=== PATIENT | male | born 2000 | race Caucasian/White ===

== ENCOUNTER 2024-07-22 21:06 | Emergency (ER) | payer MEDICAID, SELFPAY ==
--- NOTE | 2024-07-22 21:23 | ED.PSYCH ---
HPI - Psych General Chief Complaint: Psychiatric Symptoms <MIGUEL Beckwith Last Filed: 07/23/24 02:26> Stated Complaint: suicidal, substance use <MIGUEL Beckwith Last Filed: 07/23/24 02:26> Time Seen by Provider: 07/22/24 21:12 <MIGUEL Beckwith Last Filed: 07/23/24 02:26> Source: patient and old records reviewed <MIGUEL Beckwith Last Filed: 07/23/24 02:26> Mode of arrival: EMS <MIGUEL Beckwith Last Filed: 07/23/24 02:26> Limitations: no limitations <MIGUEL Beckwith Last Filed: 07/23/24 02:26> History of Present Illness HPI Narrative: Patient is a 23 y/o male who presents to the ED via EMS with report of hallucinations. Per EMS report, they were called out to a local [facility] for a patient with suicidal ideation, admitting to drug use. Patient is currently homeless. Reportedly transitioning to female, currently taking spironolactone. Prefers to go by She/Her. Patient states he has history of bipolar and suicidal behaviors, has been off of his medications for the last 1 month. Does not currently follow with a psychiatrist. States he has been hearing and seeing voices of his brothers to have . States this has been an ongoing issue for the last few years. He currently denies SI. Denies HI. He does admit to smoking methamphetamines which was laced with fentanyl as well as snorting fentanyl. <MIGUEL Beckwith Last Filed: 07/23/24 02:26> Review of Systems Review of Systems: All systems reviewed & are unremarkable except as noted in HPI. <MIGUEL Beckwith Last Filed: 07/23/24 02:26> All systems reviewed & are unremarkable except as noted in HPI and below <MIGUEL Beckwith Last Filed: 07/23/24 02:26> [facility] Social History Social History: Social History Substance use type: amphetamines, opiates and methamphetamine <Chiqui Dailey PA-C - Last Filed: 07/23/24 02:26> Exam Narrative: GENERAL: Disheveled-appearing, thin, non-toxic, in no acute distress. HEAD: Normocephalic, atraumatic. RESPIRATORY: Airway patent, respirations nonlabored. Clear to auscultation bilaterally, no rales, rhonchi, wheezing. CARDIOVASCULAR: Regular rate and rhythm MUSCULOSKELETAL: Moves all extremities. No gross deformities. SKIN: Warm, dry, normal color. NEURO: Alert. Speech clear. Cranial nerves II-XII grossly intact. Steady gait. No ataxic movements. PSYCHIATRIC: Agitated, not cooperative at times. <Chiqui Dailey PA-C - Last Filed: 07/23/24 02:26> Course VAMP CREASER/PA Physician Supervision For this patient encounter, I reviewed the VAMP CREASER or PA documentation, treatment plan, and medical decision making and had [id number] time with this patient. I performed all aspects of the MDM as documented. <Zoraida Damon MD - Last Filed: 07/23/24 06:00> Vital Signs Vital signs: Vital Signs Temperature 97.9 F 07/22/24 21:38 Pulse Rate 88 07/22/24 21:38 Respiratory Rate 18 07/22/24 21:38 Blood Pressure 130/92 H 07/22/24 21:38 Pulse Oximetry 99 07/22/24 21:38 Oxygen Delivery Room Air 07/22/24 21:38 Temperature 97.9 F 07/22/24 21:38 Pulse Rate 77 07/23/24 05:39 Respiratory Rate 18 07/23/24 05:39 Blood Pressure 122/87 07/23/24 05:39 Pulse Oximetry 97 07/23/24 05:39 Oxygen Delivery Room Air 07/22/24 21:38 <Chiqui Dailey PA-C - Last Filed: 07/23/24 02:26> Vital Signs Temperature 97.9 F 07/22/24 21:38 Pulse Rate 88 07/22/24 21:38 Respiratory Rate 18 07/22/24 21:38 Blood Pressure 130/92 H 07/22/24 21:38 Pulse Oximetry 99 07/22/24 21:38 Oxygen Delivery Room Air 07/22/24 21:38 Temperature 97.9 F 07/22/24 21:38 Pulse Rate 77 07/23/24 05:39 Respiratory Rate 18 07/23/24 05:39 Blood Pressure 122/87 07/23/24
[2024-07-22 21:38] VITALS: BP 130/92; PULSE 88; RESP 18; TEMP 36.6; O2SAT 99
[2024-07-22 21:42] LABS: Basophils Absolute Auto 0.1 K/mm3 (0.0-0.1); Basophils Percent Auto 0.6 % (0.2-1.2); Eosinophils Absolute Auto 0.4 K/mm3 (0-0.3); Eosinophils Percent Auto 3.7 % (0-4.4); Hemoglobin 12.5 g/dL (14.0-18.0); Immature Granulocyte Absolute 0.02 K/mm3 (0.00-0.031); Immature Granulocyte Percent A 0.2 % (0-0.5); Lymphocytes Absolute Auto 3.24 K/mm3 (0.9-3.2); Lymphocytes Percent Auto 28.9 % (18.3-44.2); Mean Corpuscular HGB Conc 33.8 g/dl (32-36); Mean Corpuscular Volume 94.6 fl (80-100); Mean Platelet Volume 10.3 fl (7.4-10.4); Monocytes Absolute Auto 0.8 K/mm3 (0.1-0.6); Monocytes Percent Auto 6.8 % (2.6-8.5); Neutrophils Absolute Auto 6.7 K/mm3 (1.3-6.7); Neutrophils Percent Auto 59.8 % (45.5-73.1); Platelet Count Result 425 k/mm3 (150-375); Red Blood Count 3.91 M/mm3 (4.6-6.20); Red Cell Distribution Width 12.2 % (11.5-14.5); White Blood Count 11.2 K/mm3 (4.5-10.0)
[2024-07-22 22:15] LABS: Alanine Aminotransferase 24 U/L (6-50); Alkaline Phosphatase 83 U/L (38-126); Anion Gap 9 mmol/L (4-12); Aspartate Amino Transferase 35 U/L (17-59); Bilirubin,Total 0.4 mg/dL (0.2-1.3); Blood Urea Nitrogen 13 mg/dL (9-20); Calcium 9.1 mg/dL (8.4-10.2); Carbon Dioxide 27 mmol/L (22-30); Chloride 103 mmol/L (98-107); Estimated Glomerular Filt Rate > 60; Glucose 101 mg/dL (65-110); Potassium 4.2 mmol/L (3.4-5.0); Sodium 139 mmol/L (137-145)
[2024-07-22 22:16] LABS: Acetaminophen < 10 ug/mL (10-30); Ethanol < 10 mg/dL (<10); Salicylate < 1.0 mg/dL (2-20)
--- NOTE | 2024-07-22 22:36 | PC.NURSE ---
This Rn was getting pt inital assessment when pt pulled out a pill and asked for water so she could take her medication. This Rn asked what the medication was and pt took out a prescription bottle of spirolactone. RN stated I would go ask the PA Chiqui who had signed up for pt. Chiqui PA now at bedside and is asking the pt if she can see the pill to verify if that is what the medication is. Pt states he wants to take his medication and doesnt want Chiqui to take it because she wont give it back to me Chiqui states she would give the medication back if it is safe for pt but wants to go verify with the computer. Pt then throws pill in her mouth and swallows it without water before Chiqui could safely verify the medication and states I was scared you werent going to allow me to take the medication .
[2024-07-22 22:43] LABS: Add Urine Microscopic? YES; Appearance Urine Clear (Clear); Bacteria Urine None Seen /hpf; Bilirubin Urine Negative (Negative); Blood Urine Negative (Negative); Color Urine Dark Yellow (Yellow); Glucose Urine UA Negative (Negative); Ketones Urine 1+ mg/dL (Negative); Leukocyte Esterase Ur Trace LEU/UL (Negative); Nitrate Urine Negative (Negative); Non Pathogenic Casts 0-2; Protein Urine Trace mg/dL (Negative); RBC Urine 0-2 /hpf (0-2); Specific Grav Ur 1.035 (1.001-1.035); Squamous Epithelial Cell Urine Occasional /hpf (Few); WBC Urine 21-50 /hpf (0-3); pH Urine 5.5 (5.0-9.0)
[2024-07-22 22:45] LABS: Thyroid Stimulating Hormone 0.553 uIU/mL (0.465-4.680)
[2024-07-22 22:55] LABS: Barbiturate Screen Urine Negative (Negative); Benzodiazepines Screen Urine Negative (Negative)
[2024-07-22 22:56] LABS: Cannabinoid Screen Urine Positive (Negative); Cocaine Screen Urine Negative (Negative); Methadone Screen Urine Negative (Negative); Opiate Screen Urine Negative (Negative); Phencyclidine Screen Urine Negative (Negative)
[2024-07-22 23:12] LABS: Influenza A QL RT-PCR Negative (Negative); Influenza B QL RT-PCR Negative (Negative); RSV RNA, RT-PCR Negative (Negative); SARS-CoV-2 RNA PCR Negative (Negative)
[2024-07-22 23:20] LABS: Amphetamine Screen Urine Positive (Negative)
--- NOTE | 2024-07-22 23:21 | PC.NURSE ---
This RN spoke with Vianey from [facility] and gave report for evaluation at [phone]. They state they will be here 60-90 minutes to dispatch the team.
--- NOTE | 2024-07-23 01:23 | PC.NURSE ---
AJITH Florian states we can hold the kepflex until pt wakes up
--- NOTE | 2024-07-23 02:12 | PC.NURSE ---
This RN just got off the phone with Yuriy from [facility]. Sandra spoke with a psychiatrist and states they have declined the pt because they are thinking this is drug induced. Sandra states if pt wakes up in morning more sober and we still do not have placement to call again.
--- NOTE | 2024-07-23 03:26 | PC.NURSE ---
This Rn spoke with Rosana from [facility] that states they have accepted the pt. The Accepting physician is Frieda. Rosana states they can give nurse to nurse report after 0800 this morning. Rosana states they cannot take pt until after 1300 of 07/23/24.
[2024-07-23 05:39] VITALS: BP 122/87; PULSE 77; RESP 18; O2SAT 97
--- NOTE | 2024-07-23 08:39 | PC.NURSE ---
report called to [facility] and spoke with SUMIT Florian.
--- NOTE | 2024-07-23 09:11 | PC.NURSE ---
ordered pt breakfast tray.
[2024-07-23] MEDS: Please add drug allergy info to patient profile. 1 EACH XX (09:37)
[2024-07-23] MEDS: CEPHALEXIN 500 MG CAPSULE PO (09:37)
--- NOTE | 2024-07-23 09:40 | PC.NURSE ---
woke pt up for breakfast and to obtain vital signs. attempted to hand breakfast tray to pt, and asked pt if she was able to hold it. pt states yes i fucking have it give it to me! pt asks Am I getting out of here or what's the plan? explained to pt transport will be here around 1pm to take her to [facility]. consent signed by pt. sitter at bedside. no other questions or concerns at this time.
[2024-07-23 09:46] VITALS: BP 105/65; PULSE 81; RESP 17; TEMP 36.8; O2SAT 100
== END 2024-07-23 13:09 ==
PROVIDERS: Emergency Provider Physician Assistant
DX: T14.91XA Suicide attempt, initial encounter (principal); R44.3 Hallucinations, unspecified; F19.10 Other psychoactive substance abuse, uncomplicated; Z59.00 Homelessness unspecified; Z20.822 Contact with and (suspected) exposure to COVID-19
CPT/HCPCS: 36415; 80053; 80143; 80179; 80307; 81001; 82077; 84443; 85025; 87086; 87637; 99285; A9270

== ENCOUNTER 2024-08-01 06:00 | Emergency (ER) | payer MEDICAID, SELFPAY ==
[2024-08-01 06:25] VITALS: BP 135/92; PULSE 84; RESP 18; TEMP 36.8; O2SAT 97
--- NOTE | 2024-08-01 06:37 | PC.NURSE ---
this patient presents to ed via ems for SI. Patient states to this nurse that she wants to overdose by fentanyl, and or cutting his neck with her brothers knife. Patient is disheveled and unkempt strong odor of urine. Patient states she is tired and would like meal tray. Patient is alert and oriented x's 4, calm and cooperative.
[2024-08-01 06:58] LABS: Basophils Absolute Auto 0.1 K/mm3 (0.0-0.1); Basophils Percent Auto 0.6 % (0.2-1.2); Eosinophils Absolute Auto 0.6 K/mm3 (0-0.3); Hematocrit 38.2 % (42.0-52.0); Hemoglobin 12.4 g/dL (14.0-18.0); Immature Granulocyte Absolute 0.04 K/mm3 (0.00-0.031); Immature Granulocyte Percent A 0.4 % (0-0.5); Lymphocytes Absolute Auto 2.41 K/mm3 (0.9-3.2); Lymphocytes Percent Auto 22.8 % (18.3-44.2); Mean Corpuscular HGB Conc 32.5 g/dl (32-36); Mean Corpuscular Hemoglobin 31.8 pg (26-34); Mean Corpuscular Volume 97.9 fl (80-100); Mean Platelet Volume 9.8 fl (7.4-10.4); Monocytes Absolute Auto 0.9 K/mm3 (0.1-0.6); Monocytes Percent Auto 8.6 % (2.6-8.5); Neutrophils Absolute Auto 6.5 K/mm3 (1.3-6.7); Neutrophils Percent Auto 61.6 % (45.5-73.1); Platelet Count Result 392 k/mm3 (150-375); Red Cell Distribution Width 13.5 % (11.5-14.5); White Blood Count 10.6 K/mm3 (4.5-10.0)
[2024-08-01 07:03] LABS: Add Urine Microscopic? YES; Appearance Urine Turbid (Clear); Bacteria Urine Rare /hpf; Bilirubin Urine Negative (Negative); Blood Urine Negative (Negative); Color Urine Yellow (Yellow); Glucose Urine UA Negative (Negative); Ketones Urine Negative (Negative); Leukocyte Esterase Ur 1+ LEU/UL (Negative); Nitrate Urine Negative (Negative); Non Pathogenic Casts 0-2; Protein Urine Negative (Negative); RBC Urine 0-2 /hpf (0-2); Specific Grav Ur 1.019 (1.001-1.035); Squamous Epithelial Cell Urine Occasional /hpf (Few); Urobilinogen Urine 0.2 mg/dL (<2.0); WBC Urine 21-50 /hpf (0-3); pH Urine 6.5 (5.0-9.0)
[2024-08-01 07:13] LABS: Barbiturate Screen Urine Negative (Negative); Benzodiazepines Screen Urine Negative (Negative)
[2024-08-01 07:16] LABS: Ethanol < 10 mg/dL (<10)
[2024-08-01 07:19] LABS: Alanine Aminotransferase 50 U/L (6-50); Albumin Level 4.3 g/dL (3.5-5.1); Alkaline Phosphatase 98 U/L (38-126); Anion Gap 9 mmol/L (4-12); Aspartate Amino Transferase 55 U/L (17-59); Bilirubin,Total 0.2 mg/dL (0.2-1.3); Blood Urea Nitrogen 14 mg/dL (9-20); Carbon Dioxide 23 mmol/L (22-30); Chloride 103 mmol/L (98-107); Estimated CRCL calculation 99 ml/min; Estimated Glomerular Filt Rate > 60; Glucose 94 mg/dL (65-110); Potassium 4.2 mmol/L (3.4-5.0); Sodium 135 mmol/L (137-145)
[2024-08-01 07:35] VITALS: BP 124/91; PULSE 102; RESP 18; O2SAT 100
[2024-08-01 07:36] LABS: SARS-CoV-2 RNA PCR Negative (Negative)
[2024-08-01 07:45] LABS: Cannabinoid Screen Urine Positive (Negative); Cocaine Screen Urine Negative (Negative); Methadone Screen Urine Negative (Negative); Opiate Screen Urine Negative (Negative); Phencyclidine Screen Urine Negative (Negative)
[2024-08-01 07:46] LABS: Amphetamine Screen Urine Positive (Negative)
--- NOTE | 2024-08-01 08:10 | ECG_ITS ---
Test Date: 2024-08-01 08:35:23 Measurements Intervals [place] Rate: 99 P: 44 CT: 119 QRS: 87 QRSD: 86 T: 59 QT: 329 QTc: 423 Interpretive Statements SINUS RHYTHM WITH SHORT CT INTERVAL No previous ECG available for comparison Electronically Signed On 08-01-2024 11:45:29 CDT by Santy Bell M.D.
--- NOTE | 2024-08-01 08:10 | ED.GENADULT ---
HPI - General Adult General Chief complaint: Psychiatric Symptoms Stated complaint: SI Time Seen by Provider: 08/01/24 06:58 History of Present Illness HPI narrative: 23-year-old male present to the emergency department for evaluation for suicidal statements with an intent to overdose on fentanyl. Patient states he is homeless. Patient states he is seeking treatment for his addiction. Related Data Allergies Allergy/AdvReac Type Severity Reaction Status Date / Time No Known Allergies Allergy Verified 07/23/24 09:37 Review of Systems Review of Systems: All systems reviewed & are unremarkable except as noted in HPI and below PMFSH Social History Social History Substance use type: amphetamines Exam Narrative: APPEARANCE: Well appearing, no pain, no distress, well-nourished. HEAD: normocephalic, atraumatic. EYES: PERRLA/EOMI, conjunctivae clear. NOSE: Normal no drainage EARS:TMS clear with good light reflex. THROAT: Pharynx clear, no exudate. NECK: Supple. No adenopathy, no masses. RESPIRATORY: Airway patent, respirations nonlabored. Clear to auscultation bilaterally, no rales, rhonchi, wheezing. CARDIOVASCULAR: Regular rate and rhythm without murmurs rubs or gallops. ABDOMINAL: Soft, nontender, nondistended, normal bowel sounds MUSCULOSKELETAL: Moves all extremities. Strength/ROM intact, No edema, No calf tenderness. NEURO: Alert. Cranial nerves II through XII intact. Grossly intact SKIN: Warm, dry. Normal Color Course Vital Signs Vital signs: Vital Signs Temperature 98.2 F 08/01/24 06:25 Pulse Rate 84 08/01/24 06:25 Respiratory Rate 18 08/01/24 06:25 Blood Pressure 135/92 H 08/01/24 06:25 Pulse Oximetry 97 08/01/24 06:25 Oxygen Delivery Room Air 08/01/24 06:25 Temperature 98.2 F 08/01/24 06:25 Pulse Rate 98 08/01/24 11:45 Respiratory Rate 18 08/01/24 11:45 Blood Pressure 120/88 08/01/24 11:45 Pulse Oximetry 100 08/01/24 11:45 Oxygen Delivery Room Air 08/01/24 06:25 Medical Decision Making MDM Narrative Medical decision making narrative: 23-year-old male presents emergency department for evaluation after her reporting an intent to overdose on fentanyl. Patient is afebrile with a minor leukocytosis and 0.6 and a stable hemoglobin of 12.4, patient has no acute abnormalities on his CMP UA was negative for infection but did have high white blood cells, urine cultures pending. Patient was positive for amphetamines and cannabinoids. Patient was negative for COVID and patient's salicylate and acetaminophen Patient is medically cleared for evaluation by crisis. Patient is medically cleared for transport and inpatient psychiatric hospitalization as needed. Patient was evaluated by crisis and declined any assistance. Patient denies any homicidal suicidal ideation. Vital Signs Vital Signs: Vital Signs Temperature 98.2 F 08/01/24 06:25 Pulse Rate 84 08/01/24 06:25 Respiratory Rate 18 08/01/24 06:25 Blood Pressure 135/92 H 08/01/24 06:25 Pulse Oximetry 97 08/01/24 06:25 Oxygen Delivery Room Air 08/01/24 06:25 Temperature 98.2 F 08/01/24 06:25 Pulse Rate 98 08/01/24 11:45 Respiratory Rate 18 08/01/24 11:45 Blood Pressure 120/88 08/01/24 11:45 Pulse Oximetry 100 08/01/24 11:45 Oxygen Delivery Room Air 08/01/24 06:25 Lab Data Lab results reviewed: Yes I reviewed the patient's lab results. 08/01/24 06:48 08/01/24 06:48 Labs: Lab Results 08/01/24 Range/Units 06:48 WBC 10.6 H (4.5-10.0) K/mm3 RBC 3.90 L (4.6-6.20) M/mm3 Hgb 12.4 L (14.0-18.0) g/dL Hct 38.2 L (42.0-52.0) % MCV 97.9 (80-100) fl MCH 31.8 (26-34) pg MCHC 32.5 (32-36) g/dl RDW 13.5 (11.5-14.5) % Plt Count 392 H (150-375) k/mm3 MPV 9.8 (7.4-10.4) fl Immature Gran % (Auto) 0.4 (0-0.5) % Neut % (Auto) 61.6 (45.5-73.1) % Lymph % (Auto) 22.8 (18.3-44.2) % [place] % (Auto) 8.6 H (2.6-8.5) % Eos % (Auto) 6.0 H (0-4.4) % Baso % (Auto) 0.6 (0.2-1.2) % Lymph # (Auto) 2.41 (0.9-3.2) K/mm3 [place] # (Auto) 0.9 H (0.1-0.6) K/mm3 Eos # (Auto) 0.6 H (0-0.3) K/mm3 Baso # (Auto) 0.1 (0.0-0.1) K/mm3 Abs Immat Gran (auto) 0.04 H (0.00-0.031) K/mm3 Absolute Neuts (auto) 6.5 (1.3-6.7) K/mm3 Absolute Nucleated RBC 0.000 (0.0-0.012) K/mm3 Nucleated RBC % 0.0 (0.0-0.2) % Sodium 135 L (137-145) mmol/L Potassium 4.2 (3.4-5.0) mmol/L Chloride 103 (98-107) mmol/L Carbon Dioxide 23 (22-30) mmol/L Anion Gap 9 (4-12) mmol/L BUN 14 (9-20) mg/dL Creatinine 0.70 (0.7-1.3) mg/dL Estim Creat Clear Calc 99 ml/min Estimated GFR > 60 (59 - ) Glucose 94 (65-110) mg/dL Calcium 9.0 (8.4-10.2) mg/dL Total Bilirubin 0.2 (0.2-1.3) mg/dL AST 55 (17-59) U/L ALT 50 (6-50) U/L Alkaline Phosphatase 98 (38-126) U/L Total Protein 8.0 (6.3-8.2) g/dL Albumin 4.3 (3.5-5.1) g/dL TSH (Reflex) 2.660 (0.465-4.68) uIU/mL Urine Color Yellow (Yellow) Urine Appearance Turbid H (Clear) Urine pH 6.5 (5.0-9.0) Ur Specific [place] 1.019 (1.001-1.035) Urine Protein Negative (Negative) mg/dL Urine Glucose (UA) Negative (Negative) mg/dL Urine Ketones Negative (Negative) mg/dL Ur Blood (Man) Negative (Negative) Urine Nitrate Negative (Negative) Urine Bilirubin Negative (Negative) Urine Urobilinogen 0.2 (<2.0) mg/dL Leukocyte Esterase Rfl 1+ H (Negative) MEGAN/UL Urine RBC 0-2 (0-2) /hpf Urine WBC 21-50 H (0-3) /hpf Ur Squamous Epith Cells Occasional (Few) /hpf Urine Bacteria Rare /hpf Urine Casts 0-2 Salicylates < 1.0 L (2-20) mg/dL Urine Opiates Screen Negative (Negative) Urine Methadone Screen Negative (Negative) Acetaminophen < 10 L (10-30) ug/mL Ur Barbiturates Screen Negative (Negative) Ur Phencyclidine Scrn Negative (Negative) Ur Amphetamine Screen Positive A (Negative) U Benzodiazepines Scrn Negative (Negative) Urine Cocaine Screen Negative (Negative) U Cannabinoids Screen Positive A (Negative) Ethyl Alcohol < 10 (<10) mg/dL SARS-CoV-2 RNA (RT-PCR) Negative (Negative) Discharge Plan Discharge Clinical Impression: Substance abuse Patient Disposition: Home, Self-Care Condition: Stable Instructions: Antibiotic Form, Depression (ED), Help Prevent Suicide (ED) Additional Instructions: If you do not feel safe, please call or return to the emergency department. Prescriptions: No Action cephalexin 500 mg capsule 500 mg PO Q6H 7 Days Qty: 28 0RF Follow-up/Referrals: UNKNOWN,DOCTOR [Primary Care Provider] -
[2024-08-01 09:43] LABS: Acetaminophen < 10 ug/mL (10-30); Salicylate < 1.0 mg/dL (2-20)
--- NOTE | 2024-08-01 11:26 | PCCCNOTE ---
1026-Called to the pt's room to provide bus tokens to assist with transportation to the [facility]. Gave two tokens for the requested destination.-laxmi.
[2024-08-01 11:45] VITALS: BP 120/88; PULSE 98; RESP 18; O2SAT 100
== END 2024-08-01 11:49 | disposition home or self-care (01) ==
PROVIDERS: Emergency Medicine; Emergency Provider Emergency Medicine
DX: F15.10 Other stimulant abuse, uncomplicated (principal); F12.10 Cannabis abuse, uncomplicated; Z59.00 Homelessness unspecified; Z11.52 Encounter for screening for COVID-19
CPT/HCPCS: 36415; 80053; 80143; 80179; 80307; 81001; 82077; 84443; 85025; 87086; 87635; 93005; 99284